=== PATIENT | female | born 1995 | race Two or more races ===

== ENCOUNTER 2020-04-09 01:24 | Inpatient (IN) | payer SELFPAY ==
[~2020-04-09] VITALS: Ht 165.1 cm; Wt 86.9 kg
[2020-04-09] MEDS ORDERED: ACETAMINOPHEN 325 MG TAB PO ONE ×2 (01:41→01:45)
[2020-04-09 04:04] LABS: Urine Bacteria FEW /hpf (None Seen); Urine Blood 2+ /uL (Negative); Urine Mucus FEW (None Seen); Urine Specific Gravity 1.018 (1.001-1.035); Urine WBC 161 /hpf (0 - 5)
[2020-04-09] MEDS ORDERED: cefTRIAXone 1GM/50ML D5W 50 ML IV ONE ×2 (06:00→07:30)
[2020-04-09] MEDS ORDERED: SODIUM CHLORIDE 0.9% 1,000 ML IV ONE ×2 (07:30)
[2020-04-09] MEDS ORDERED: KETOROLAC TROMETH 30 MG/ML 1ML VIAL IV ONE (07:45)
[2020-04-09 09:08] LABS: Basophils # (auto) 0.1 10 ^3/uL (0-0.2); Basophils % (auto) 0.4 % (0.0-2.0); Eosinophils # (auto) 0 10 ^3/uL (0-0.8); Hematocrit 42.7 % (36.0-46.0); Hemoglobin 14.2 g/dL (12.2-16.2); Lymphocytes # (auto) 1.1 10 ^3/uL (0.4-5.4); Lymphocytes % (auto) 5.9 % (10.0-50.0); Mean Corpuscular Hemoglobin 28.7 pg (28.0-32.0); Mean Corpuscular Hgb Conc. 33.2 g/dL (32.0-36.0); Mean Corpuscular Volume 86.5 fL (80.0-100.0); Monocytes # (auto) 1.2 10 ^3/uL (0-1.3); Monocytes % (auto) 6.4 % (0.0-12.0); Neutrophils # (auto) 16.9 10 ^3/uL (1.6-8.6); Neutrophils % (auto) 87.3 % (37.0-80.0); Platelet Count (auto) 201 10^3/uL (140-450); Red Blood Cells 4.93 10^6/uL (4.0-5.20); Red Cell Distribution Width 14.5 % (11.8-14.3); White Blood Cell 19.4 10^3/uL (4.4-10.8)
[2020-04-09] MEDS ORDERED: SODIUM CHLORIDE 0.9% 1,000 ML IV SCH (09:15)
[2020-04-09] MEDS ORDERED: DOCUSATE SOD 100 MG CAP PO PRN (09:15)
[2020-04-09] MEDS ORDERED: MORPHINE SULF INJ 2 MG/ML SYRINGE 1ML IV PRN (09:15)
[2020-04-09 09:32] LABS: Albumin 2.8 g/dL (3.4-5.0); Potassium 3.5 mmol/L (3.5-5.1)
[2020-04-09 09:39] LABS: BUN/Creatinine Ratio 15.2; Bilirubin, Total 0.7 mg/dL (0.2-1.0); Total Protein 6.9 g/dL (6.4-8.2)
[2020-04-09] MEDS: ONDANSETRON HCL 4 MG/2 ML VIAL IV PRN (13:20)
[2020-04-09] MEDS: ACETAMINOPHEN 325 MG TAB PO PRN (13:25)
[2020-04-09] MEDS: SODIUM CHLORIDE 0.9% 1,000 ML IV SCH (14:11)
[2020-04-09] MEDS ORDERED: IBUPROFEN 600 MG TAB PO ONE (15:30)
[2020-04-09 17:55] VITALS: BP 91/53
[2020-04-09 18:35] VITALS: BP 89/54
[2020-04-09 21:30] VITALS: BP 94/55
[2020-04-09] MEDS: HYDROcodone-ACET 5/325MG TAB PO PRN (21:45)
[2020-04-10] VITALS (22 sets, daily range): BP systolic 90–134; BP diastolic 52–77
[2020-04-10] MEDS: HYDROcodone-ACET 5/325MG TAB PO PRN (02:41)
[2020-04-10] MEDS: ONDANSETRON HCL 4 MG/2 ML VIAL IV PRN ×2 (02:58→08:39)
[2020-04-10] MEDS: ACETAMINOPHEN 325 MG TAB PO PRN ×3 (04:27→21:57)
[2020-04-10] MEDS: SODIUM CHLORIDE 0.9% 1,000 ML IV SCH ×3 (08:48→23:18)
[2020-04-10] MEDS: cefTRIAXone 1GM/50ML D5W 50 ML IV SCH (09:54)
[2020-04-10] MEDS ORDERED: SODIUM CHLORIDE 0.9% 1,000 ML IV ONE ×2 (11:15→14:15)
[2020-04-10] MEDS ORDERED: SACUBITRIL-VALSARTAN 24mg/26mg TAB PO ONE (11:30)
[2020-04-10] MEDS ORDERED: ENOXAPARIN SOD 80 MG/0.8ML SYRINGE SC ONE (11:30)
[2020-04-10] MEDS ORDERED: CARVEDILOL 3.125 MG TAB PO ONE (11:30)
[2020-04-10] MEDS ORDERED: FUROSEMIDE 40 MG/4 ML VIAL IV ONE (12:00)
[2020-04-10 12:05] LABS: Basophils # (auto) 0 10 ^3/uL (0-0.2); Basophils % (auto) 0.2 % (0.0-2.0); Eosinophils # (auto) 0 10 ^3/uL (0-0.8); Eosinophils % (auto) 0.1 % (0.0-7.0); Hematocrit 39.1 % (36.0-46.0); Hemoglobin 12.8 g/dL (12.2-16.2); Lymphocytes # (auto) 1.3 10 ^3/uL (0.4-5.4); Lymphocytes % (auto) 11.8 % (10.0-50.0); Mean Corpuscular Hemoglobin 28.7 pg (28.0-32.0); Mean Corpuscular Hgb Conc. 32.7 g/dL (32.0-36.0); Mean Corpuscular Volume 87.6 fL (80.0-100.0); Monocytes # (auto) 0.7 10 ^3/uL (0-1.3); Monocytes % (auto) 6.2 % (0.0-12.0); Neutrophils # (auto) 9.1 10 ^3/uL (1.6-8.6); Neutrophils % (auto) 81.7 % (37.0-80.0); Platelet Count (auto) 170 10^3/uL (140-450); Red Blood Cells 4.47 10^6/uL (4.0-5.20); Red Cell Distribution Width 14.9 % (11.8-14.3); White Blood Cell 11.1 10^3/uL (4.4-10.8)
[2020-04-10 12:30] LABS: Albumin 2.3 g/dL (3.4-5.0); Anion Gap 5 (5-15); Blood Urea Nitrogen 11 mg/dL (7-18); Calcium 7.7 mg/dL (8.5-10.1); Carbon Dioxide 27 mmol/L (21-32); Chloride 104 mmol/L (98-107); Glucose 96 mg/dL (74-106); Sodium 136 mmol/L (136-145)
[2020-04-10 12:39] LABS: Alanine Aminotransferase 59 U/L (13-56); Alkaline Phosphatase 117 U/L (45-117); Aspartate Aminotransferase 22 U/L (15-37); BUN/Creatinine Ratio 16.2; Bilirubin, Total 0.5 mg/dL (0.2-1.0); GFR African American 133 mL/min; GFR Non-African American 110 mL/min; Total Protein 6.2 g/dL (6.4-8.2)
[2020-04-10 13:58] LABS: Thyroid Stimulating Hormone 0.36 uIU/mL (0.358-3.74)
[2020-04-10 13:59] LABS: Beta HCG, Quantitative < 1 mlU/mL (1-3)
[2020-04-10] MEDS ORDERED: FUROSEMIDE 20 MG/2 ML VIAL IV PRN (14:15)
[2020-04-10] MEDS ORDERED: IOHEXOL 350 MG/ML 100ML IJ ONE (14:58)
[2020-04-10] MEDS: FUROSEMIDE 40 MG/4 ML VIAL IV SCH (18:00)
[2020-04-10 18:11] LABS: Cholesterol 148 mg/dL (< 200); HDL Cholesterol 9 mg/dL (40-59); Triglycerides 416 mg/dL (< 150)
[2020-04-10] MEDS: CARVEDILOL 3.125 MG TAB PO SCH (21:58)
[2020-04-10] MEDS: SACUBITRIL-VALSARTAN 24mg/26mg TAB PO SCH (21:59)
[2020-04-10] MEDS ORDERED: ENOXAPARIN SOD 80 MG/0.8ML SYRINGE SC SCH (22:00)
[2020-04-11] VITALS (10 sets, daily range): BP systolic 94–112; BP diastolic 42–80
[2020-04-11] MEDS: FUROSEMIDE 40 MG/4 ML VIAL IV SCH ×2 (05:40→18:01)
[2020-04-11] MEDS: HYDROcodone-ACET 5/325MG TAB PO PRN ×2 (09:03→23:30)
[2020-04-11] MEDS: SODIUM CHLORIDE 0.9% 1,000 ML IV SCH ×3 (09:04→23:29)
[2020-04-11] MEDS: SACUBITRIL-VALSARTAN 24mg/26mg TAB PO SCH ×2 (09:56→21:44)
[2020-04-11] MEDS: cefTRIAXone 1GM/50ML D5W 50 ML IV SCH (09:56)
[2020-04-11] MEDS: ENOXAPARIN SOD 30 MG/0.3 ML SYRINGE SC SCH (09:56)
[2020-04-11] MEDS: CARVEDILOL 3.125 MG TAB PO SCH ×2 (09:57→21:45)
[2020-04-12] VITALS (8 sets, daily range): BP systolic 88–100; BP diastolic 48–73
[2020-04-12] MEDS: FUROSEMIDE 40 MG/4 ML VIAL IV SCH ×2 (06:05→17:55)
[2020-04-12] MEDS: ENOXAPARIN SOD 30 MG/0.3 ML SYRINGE SC SCH (10:07)
[2020-04-12] MEDS: cefTRIAXone 1GM/50ML D5W 50 ML IV SCH (10:07)
[2020-04-12] MEDS: SACUBITRIL-VALSARTAN 24mg/26mg TAB PO SCH (10:08)
[2020-04-12] MEDS: CARVEDILOL 3.125 MG TAB PO SCH (10:08)
[2020-04-12] MEDS: ONDANSETRON HCL 4 MG/2 ML VIAL IV PRN (10:09)
[2020-04-12] MEDS: SODIUM CHLORIDE 0.9% 1,000 ML IV SCH ×2 (10:18→15:15)
== END 2020-04-12 18:07 | disposition home or self-care (01) | DRG 871 ==
LOC: ER 01:26 → TELE 01:27 → ER 04:13 → LDRP 17:33 → TELE-WESTW 04-10 16:46
PROVIDERS: ADMIT Hospitalist; ATTEND Family Medicine
DX: A41.9 Sepsis, unspecified organism (principal); I50.23 Acute on chronic systolic (congestive) heart failure; R65.21 Severe sepsis with septic shock; I42.9 Cardiomyopathy, unspecified; N12 Tubulo-interstitial nephritis, not specified as acute or chronic; E86.0 Dehydration; E78.1 Pure hyperglyceridemia; Z20.828 Contact with and (suspected) exposure to other viral communicable diseases; K76.1 Chronic passive congestion of liver; Z86.711 Personal history of pulmonary embolism
CPT/HCPCS: 36415; 36600; 71045; 71260; 74177; 80053; 80061; 81001; 82805; 83036; 83605; 83880; 84443; 84484; 84702; 85025; 87040; 87086; 93306; 93970; G0378; J0696; J1885; J2405

== ENCOUNTER 2020-12-05 00:32 | Inpatient (IN) | payer OTHER ==
[~2020-12-05] VITALS: Ht 165.1 cm; Wt 81.0 kg
[2020-12-05 01:53] LABS: Basophils # (auto) 0 10 ^3/uL (0-0.2); Basophils % (auto) 0.2 % (0.0-2.0); Eosinophils # (auto) 0 10 ^3/uL (0-0.8); Eosinophils % (auto) 0.2 % (0.0-7.0); Hematocrit 44.2 % (36.0-46.0); Hemoglobin 15.1 g/dL (12.2-16.2); Lymphocytes # (auto) 1.2 10 ^3/uL (0.4-5.4); Mean Corpuscular Hemoglobin 29.1 pg (28.0-32.0); Mean Corpuscular Hgb Conc. 34.1 g/dL (32.0-36.0); Mean Corpuscular Volume 85.3 fL (80.0-100.0); Monocytes # (auto) 0.5 10 ^3/uL (0-1.3); Neutrophils # (auto) 15.9 10 ^3/uL (1.6-8.6); Neutrophils % (auto) 89.6 % (37.0-80.0); Red Blood Cells 5.19 10^6/uL (4.0-5.20); Red Cell Distribution Width 15.9 % (11.8-14.3); White Blood Cell 17.8 10^3/uL (4.4-10.8)
[2020-12-05 02:11] LABS: Potassium 3.9 mmol/L (3.5-5.1)
[2020-12-05 02:15] LABS: BUN/Creatinine Ratio 13.4; Calcium 8.2 mg/dL (8.5-10.1)
[2020-12-05 02:17] LABS: Total Protein 7.2 g/dL (6.4-8.2)
[2020-12-05 03:01] LABS: Urine Bacteria FEW /hpf (None Seen); Urine Blood 2+ /uL (Negative); Urine Mucus FEW (None Seen); Urine Specific Gravity 1.027 (1.001-1.035); Urine WBC 59 /hpf (0 - 5)
[2020-12-05] MEDS ORDERED: ACETYLCYSTEINE 200MG/ML IV SOL 10,200 MG in D5W 5% 250 ML IV ONE (04:15)
[2020-12-05] MEDS ORDERED: cefTRIAXone 1GM/50ML D5W 50 ML IV ONE (04:30)
[2020-12-05] MEDS ORDERED: ACETYLCYSTEINE 6GM/30ml (200mg/ml) IV SOLN 30ML IV ONE (04:47)
[2020-12-05] MEDS ORDERED: ACETYLCYSTEINE 200MG/ML IV SOL 3,400 MG in D5W 5% 500 ML IV ONE (05:15)
[2020-12-05] MEDS ORDERED: TEMAZEPAM 15 MG CAP PO PRN (06:00)
[2020-12-05] MEDS ORDERED: MORPHINE SULF INJ 2 MG/ML SYRINGE 1ML IV PRN (06:00)
[2020-12-05] MEDS ORDERED: NITROGLYCERIN 0.4 MG SL TAB SL PRN (06:00)
[2020-12-05] MEDS: SODIUM CHLORIDE 0.9% 1,000 ML IV SCH ×2 (06:11→19:19)
[2020-12-05 06:17] LABS: INR 1.2 (0.9-1.15); Partial Thromboplastin Time 25.2 sec (23.0-31.2)
[2020-12-05] MEDS: ONDANSETRON HCL 4 MG/2 ML VIAL IV PRN ×2 (06:50→18:21)
[2020-12-05] MEDS ORDERED: IBUPROFEN 400 MG TAB PO PRN (08:15)
[2020-12-05 09:00] VITALS: BP 110/71
[2020-12-05] MEDS ORDERED: ACETYLCYSTEINE 200MG/ML IV SOL 6,800 MG in D5W 5% 1,000 ML IV SCH (09:15)
[2020-12-05] MEDS: PANTOPRAZOLE 40 MG TAB PO SCH (09:18)
[2020-12-05 10:30] VITALS: BP 110/71
[2020-12-05 10:48] LABS: Albumin 2.9 g/dL (3.4-5.0); Bilirubin, Direct 0.6 mg/dL (0-0.2); Bilirubin, Total 1.1 mg/dL (0.2-1.0); Total Protein 7.6 g/dL (6.4-8.2)
[2020-12-05 13:00] VITALS: BP 112/72
[2020-12-05 14:52] LABS: Albumin 2.7 g/dL (3.4-5.0); Calcium 8.7 mg/dL (8.5-10.1); Potassium 4.1 mmol/L (3.5-5.1)
[2020-12-05 14:54] LABS: BUN/Creatinine Ratio 17.9
[2020-12-05 14:56] LABS: Bilirubin, Total 0.9 mg/dL (0.2-1.0); Total Protein 7.1 g/dL (6.4-8.2)
[2020-12-05 17:00] VITALS: BP 130/82
[2020-12-05] MEDS: IBUPROFEN 400 MG TAB PO PRN (17:28)
[2020-12-05] MEDS ORDERED: VANCOMYCIN PER PHARMACY 0 MG IV SCH (18:00)
[2020-12-05] MEDS: Ensure HIGH Protein Chocolate 8oz Bottle PO SCH (18:09)
[2020-12-05] MEDS: MORPHINE SULF INJ 2 MG/ML SYRINGE 1ML IV PRN (18:23)
[2020-12-05] MEDS ORDERED: VANCOMYCIN 1GM/250ML 250 ML IV ONE (18:45)
[2020-12-05 20:00] VITALS: BP 100/61
[2020-12-05 22:00] VITALS: BP 100/61
[2020-12-06] MEDS: ONDANSETRON HCL 4 MG/2 ML VIAL IV PRN (01:55)
[2020-12-06] MEDS: MORPHINE SULF INJ 2 MG/ML SYRINGE 1ML IV PRN (01:56)
[2020-12-06] MEDS ORDERED: VANCOMYCIN 1GM/250ML 250 ML IV SCH (04:00)
[2020-12-06 05:00] VITALS: BP 107/76
[2020-12-06] MEDS: IBUPROFEN 400 MG TAB PO PRN ×2 (05:03→14:20)
[2020-12-06 07:33] LABS: Basophils # (auto) 0 10 ^3/uL (0-0.2); Basophils % (auto) 0.3 % (0.0-2.0); Eosinophils # (auto) 0 10 ^3/uL (0-0.8); Eosinophils % (auto) 0.1 % (0.0-7.0); Hematocrit 39.7 % (36.0-46.0); Hemoglobin 13.3 g/dL (12.2-16.2); Lymphocytes # (auto) 2.1 10 ^3/uL (0.4-5.4); Lymphocytes % (auto) 14.2 % (10.0-50.0); Mean Corpuscular Hemoglobin 28.9 pg (28.0-32.0); Mean Corpuscular Hgb Conc. 33.6 g/dL (32.0-36.0); Mean Corpuscular Volume 85.9 fL (80.0-100.0); Monocytes # (auto) 1.3 10 ^3/uL (0-1.3); Monocytes % (auto) 8.8 % (0.0-12.0); Neutrophils # (auto) 11.5 10 ^3/uL (1.6-8.6); Neutrophils % (auto) 76.6 % (37.0-80.0); Red Blood Cells 4.62 10^6/uL (4.0-5.20); Red Cell Distribution Width 15.8 % (11.8-14.3)
[2020-12-06 07:54] LABS: Albumin 2.4 g/dL (3.4-5.0); Calcium 8.4 mg/dL (8.5-10.1)
[2020-12-06 07:57] LABS: BUN/Creatinine Ratio 21.6; Bilirubin, Total 0.8 mg/dL (0.2-1.0); Total Protein 6.8 g/dL (6.4-8.2)
[2020-12-06] MEDS: Ensure HIGH Protein Chocolate 8oz Bottle PO SCH ×3 (08:00→18:00)
[2020-12-06 08:49] VITALS: BP 98/52
[2020-12-06] MEDS ORDERED: cefTRIAXone 1GM/50ML D5W 50 ML IV SCH ×2 (09:00→22:00)
[2020-12-06] MEDS: SODIUM CHLORIDE 0.9% 1,000 ML IV SCH (09:38)
[2020-12-06] MEDS: PANTOPRAZOLE 40 MG TAB PO SCH (09:39)
[2020-12-06] MEDS ORDERED: IOHEXOL 300 MG/ML 100ML BOTTLE IJ ONE (11:49)
[2020-12-06 13:02] VITALS: BP 107/64
[2020-12-06] MEDS ORDERED: PIPERACILLIN-TAZO 4.5GM 100 ML IV ONE (15:15)
[2020-12-06] MEDS ORDERED: ACETAMINOPHEN 325 MG TAB PO PRN (15:30)
[2020-12-06 16:48] VITALS: BP 94/53
[2020-12-06 20:00] VITALS: BP 105/63
[2020-12-06 22:00] VITALS: BP 105/63
[2020-12-06] MEDS ORDERED: SACUBITRIL-VALSARTAN 24mg/26mg TAB PO SCH (22:00)
[2020-12-07] MEDS: ONDANSETRON HCL 4 MG/2 ML VIAL IV PRN (03:06)
[2020-12-07] MEDS: MORPHINE SULF INJ 2 MG/ML SYRINGE 1ML IV PRN ×2 (03:06→08:21)
[2020-12-07] MEDS: PIPERACILLIN-TAZO 4.5GM 100 ML IV SCH ×3 (04:07→16:12)
[2020-12-07 05:00] VITALS: BP 106/63
[2020-12-07 07:05] LABS: Albumin 2.3 g/dL (3.4-5.0); Calcium 8.4 mg/dL (8.5-10.1); Potassium 4.1 mmol/L (3.5-5.1)
[2020-12-07 07:08] LABS: BUN/Creatinine Ratio 21.3; Bilirubin, Total 0.5 mg/dL (0.2-1.0); Total Protein 6.8 g/dL (6.4-8.2)
[2020-12-07] MEDS: Ensure HIGH Protein Chocolate 8oz Bottle PO SCH ×3 (08:00→18:06)
[2020-12-07 08:47] LABS: Basophils # (auto) 0.1 10 ^3/uL (0-0.2); Basophils % (auto) 0.5 % (0.0-2.0); Eosinophils # (auto) 0 10 ^3/uL (0-0.8); Eosinophils % (auto) 0.2 % (0.0-7.0); Hematocrit 39.9 % (36.0-46.0); Hemoglobin 13.4 g/dL (12.2-16.2); Lymphocytes # (auto) 3.3 10 ^3/uL (0.4-5.4); Lymphocytes % (auto) 27.4 % (10.0-50.0); Mean Corpuscular Hemoglobin 28.5 pg (28.0-32.0); Mean Corpuscular Hgb Conc. 33.5 g/dL (32.0-36.0); Monocytes # (auto) 1.2 10 ^3/uL (0-1.3); Monocytes % (auto) 9.7 % (0.0-12.0); Neutrophils # (auto) 7.6 10 ^3/uL (1.6-8.6); Neutrophils % (auto) 62.2 % (37.0-80.0); Red Cell Distribution Width 15.6 % (11.8-14.3); White Blood Cell 12.2 10^3/uL (4.4-10.8)
[2020-12-07 09:00] VITALS: BP 100/57
[2020-12-07] MEDS ORDERED: SPIRONOLACTONE 25 MG TAB PO SCH (10:00)
[2020-12-07] MEDS: CARVEDILOL 3.125 MG TAB PO SCH ×2 (10:13→22:15)
[2020-12-07] MEDS: PANTOPRAZOLE 40 MG TAB PO SCH (10:13)
[2020-12-07 10:27] LABS: Hepatitis A Ab IgM Negative; Hepatitis B Surface Antigen Negative (Negative); Hepatitis C Antibody Negative (Negative)
[2020-12-07 10:28] LABS: Hepatitis B Core IgM Negative
[2020-12-07 13:00] VITALS: BP 100/76
[2020-12-07 17:00] VITALS: BP 98/58
[2020-12-07 20:00] VITALS: BP 115/66
[2020-12-07] MEDS ORDERED: CEFTRIAXONE SODIUM 2 GM in D5W 5% 50 ML IV ONE (21:15)
[2020-12-07 22:00] VITALS: BP 115/66
[2020-12-08 04:59] VITALS: BP 102/66
[2020-12-08] MEDS: Ensure HIGH Protein Chocolate 8oz Bottle PO SCH ×3 (08:00→18:00)
[2020-12-08 09:00] VITALS: BP 104/56
[2020-12-08] MEDS: MAGNESIUM OXIDE 400 MG TAB PO SCH ×2 (10:00→22:16)
[2020-12-08] MEDS: CARVEDILOL 3.125 MG TAB PO SCH ×2 (10:12→22:16)
[2020-12-08] MEDS: CEFTRIAXONE SODIUM 2 GM in D5W 5% 50 ML IV SCH (10:12)
[2020-12-08] MEDS: PANTOPRAZOLE 40 MG TAB PO SCH (10:13)
[2020-12-08 13:00] VITALS: BP 100/58
[2020-12-08 16:16] VITALS: BP 99/61
[2020-12-08 23:25] VITALS: BP 98/63
[2020-12-09 05:43] VITALS: BP 106/71
[2020-12-09] MEDS: Ensure HIGH Protein Chocolate 8oz Bottle PO SCH ×2 (08:00→12:00)
[2020-12-09 09:00] VITALS: BP 99/73
[2020-12-09] MEDS: CEFTRIAXONE SODIUM 2 GM in D5W 5% 50 ML IV SCH (09:42)
[2020-12-09] MEDS: MAGNESIUM OXIDE 400 MG TAB PO SCH (09:42)
[2020-12-09] MEDS: CARVEDILOL 3.125 MG TAB PO SCH (09:43)
[2020-12-09] MEDS: PANTOPRAZOLE 40 MG TAB PO SCH (09:43)
[2020-12-09 13:00] VITALS: BP 100/57
[2020-12-09 16:16] VITALS: BP 106/71
[2020-12-09 17:00] VITALS: BP 94/60
== END 2020-12-09 17:37 | disposition home health service (06) | DRG 720 ==
LOC: EDBD 00:32 → ER 00:32 → TELE 05:47 → TELE-WESTW 08:35
PROVIDERS: ADMIT Nurse Practitioner; ATTEND Internal Medicine Nephrology
PROC: 05HC33Z Insertion of Infusion Device into Left Basilic Vein, Percutaneous Approach (ICD-10-PCS; principal; 2020-12-08)
PROC: B54NZZA Ultrasonography of Left Upper Extremity Veins, Guidance (ICD-10-PCS; 2020-12-08)
DX: A41.51 Sepsis due to Escherichia coli [E. coli] (principal); I42.9 Cardiomyopathy, unspecified; E87.1 Hypo-osmolality and hyponatremia; I07.1 Rheumatic tricuspid insufficiency; E88.09 Other disorders of plasma-protein metabolism, not elsewhere classified; I50.22 Chronic systolic (congestive) heart failure; I11.0 Hypertensive heart disease with heart failure; T39.1X1A Poisoning by 4-Aminophenol derivatives, accidental (unintentional), initial encounter; N12 Tubulo-interstitial nephritis, not specified as acute or chronic; K76.0 Fatty (change of) liver, not elsewhere classified; E66.9 Obesity, unspecified; Z20.822 Contact with and (suspected) exposure to COVID-19; N20.0 Calculus of kidney; R94.5 Abnormal results of liver function studies; K52.9 Noninfective gastroenteritis and colitis, unspecified; F41.9 Anxiety disorder, unspecified; K42.9 Umbilical hernia without obstruction or gangrene; R65.20 Severe sepsis without septic shock; Z82.49 Family history of ischemic heart disease and other diseases of the circulatory system; Z83.3 Family history of diabetes mellitus; Z91.14 Patient's other noncompliance with medication regimen; Z79.899 Other long term (current) drug therapy; Z68.29 Body mass index [BMI] 29.0-29.9, adult
CPT/HCPCS: 36415; 71045; 74177; 76705; 80053; 80074; 80076; 80329; 81001; 83605; 83735; 83880; 84443; 84484; 84702; 85025; 85610; 85730; 87040; 87086; 87426; 93005; 93306; 96365; 96367; G0378; J0696; J2405; J2543; J7060